=== PATIENT | male | born 1950 | race Caucasian/White ===

== ENCOUNTER 2019-02-25 02:33 | Emergency (ER) | payer MEDICARE, MEDICAID ==
--- NOTE | 2019-02-25 03:09 | EDM.PDOC ---
ED HPI GENERAL MEDICAL PROBLEM - General Chief Complaint: General Stated Complaint: FLU LIKE SYMPTOMS Time Seen by Provider: 02/25/19 03:05 Source of Information: Reports: Patient History Limitations: Reports: No Limitations - History of Present Illness INITIAL COMMENTS - FREE TEXT/NARRATIVE: 69-year-old male who noted nasal congestion yesterday and subjective fever. He also had a mild cough and bilateral eye burning. He has since developed right ear pain. The nasal congestion has been with clear nasal discharge. He has had no nausea or vomiting. He does have a mild sore throat. No difficulty breathing. He has been able to eat and drink normally. No body aches. He does rate the burning in his eyes as an 8/10. He has been applying eyedrops with some relief. There are no other associated signs or symptoms. There are no other modifying factors. 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 (Yesterday, but they have no more) Bilateral eye & throat Pain Score (Numeric/FACES): 8 - Related Data Allergies Allergy/AdvReac Type Severity Reaction Status Date / Time No Known Allergies Allergy Verified 02/25/19 02:44 Home Meds: Home Meds Acetaminophen [Tylenol Extra Strength] 500 - 1,000 mg PO Q6H PRN #24 tablet [Rx] Ibuprofen [Ibu] 800 mg PO Q8H PRN #30 tablet 02/25/19 [Rx] Past Medical History - Past Health History Medical/Surgical History: Denies Medical/Surgical History Musculoskeletal History: Reports: Fracture Other Musculoskeletal History: R leg fx - Past Surgical History Musculoskeletal Surgical History: Reports: ORIF Other Musculoskeletal Surgeries/Procedures:: R foot surgery Social & Family History - Tobacco Use Smoking Status *Q: Former Smoker Years of Tobacco use: 1 Used Tobacco, but Quit: Yes Month/Year Tobacco Last Used: may - Caffeine Use Caffeine Use: Reports: Coffee, Soda, Tea - Alcohol Use Alcohol Use History: No - Recreational Drug Use Recreational Drug Use: No - Living Situation & Occupation Living situation: Reports: with Significant Other Occupation: Employed (Works as a salas) ED ROS GENERAL - Review of Systems Review Of Systems: See Below Constitutional: Reports: Fever, Malaise HEENT: Reports: Ear Pain (Right ear pain), Eye Pain (Bilateral eye burning), Other (Nasal congestion) Respiratory: Reports: Cough. Denies: Shortness of Breath, Wheezing Cardiovascular: Reports: No Symptoms GI/Abdominal: Reports: No Symptoms : Reports: No Symptoms Musculoskeletal: Reports: No Symptoms Skin: Reports: No Symptoms Neurological: Reports: No Symptoms Hematologic/Lymphatic: Reports: No Symptoms Immunologic: Reports: No Symptoms ED EXAM, GENERAL - Physical Exam Exam: See Below Exam Limited By: No Limitations General Appearance: Alert, WD/WN, No Apparent Distress Eye Exam: Bilateral Eye: EOMI, Normal Inspection (No conjunctival injection. Sclerae are anicteric), PERRL Ears: Normal External Exam, Normal Canal, Hearing Grossly Normal, Normal TMs Ear Exam: Bilateral Ear: Auricle Normal, Canal Normal, TM normal Nose: No Blood, Nasal Drainage, Clear Rhinorrhea Throat/Mouth: Normal Voice, No Airway Compromise, Other (Mild erythema posteriorly) Head: Atraumatic, Normocephalic Neck: Normal Inspection, Supple, Non-Tender, Full Range of Motion Respiratory/Chest: No Respiratory Distress, Lungs Clear, Normal Breath Sounds, No Accessory Muscle Use, Chest Non-Tender Cardiovascular: Normal Peripheral Pulses, Regular Rate, Rhythm, No JVD Peripheral Pulses: 2+: Radial (L), Radial (R) GI/Abdominal: Normal Bowel Sounds, Soft, Non-Tender, No Mass Back Exam: Normal Inspection Extremities: Normal Inspection, Normal Range of Motion, Non-Tender, No Pedal Edema, Normal Capillary Refill Neurological: Alert, Oriented, CN II-XII Intact, Normal Cognition, No Motor/ Sensory Deficits Skin Exam: Warm, Dry, Intact, Normal Color, No Rash Lymphatic: No Adenopathy Course - Vital Signs Last Recorded V/S: Last Vital Signs Temp 36.4 C 02/25/19 02:37 Pulse 59 L 02/25/19 02:37 Resp 18 02/25/19 02:37 BP 108/77 02/25/19 02:37 Pulse Ox 100 02/25/19 02:37 - Orders/Labs/Meds Orders: Active Orders 24 hr Category Date Time Status STREP SCRN A RAPID W CULT CONF [RM] Stat Lab 02/25/19 03:25 Received Labs: Rapid strep screen was negative. Throat swab was sent for confirmatory culture. Meds: Medications Discontinued Medications Generic Name Dose Route Start Last Admin Trade Name Osminq PRN Reason Stop Dose Admin Acetaminophen 1,000 mg 02/25/19 03:27 02/25/19 03:53 Tylenol Extra Strength PO 02/25/19 03:28 1,000 mg ONETIME ONE Administration - Re-Assessments/Exams Free Text/Narrative Re-Assessment/Exam: 02/25/19 03:55: Rapid strep screen was negative. His symptoms are consistent with a viral upper respiratory infection. I have recommended symptomatic treatment and I have given a prescription for Tylenol and ibuprofen. He may continue using the eyedrops as needed for comfort. Precautions and reasons for return to the emergency department were discussed with the patient and his significant other. Departure - Departure Time of Disposition: 03:57 Disposition: Home, Self-Care 01 Condition: Good Clinical Impression: URI (upper respiratory infection) Qualifiers: URI type: unspecified URI Qualified Code(s): J06.9 - Acute upper respiratory infection, unspecified - Discharge Information Prescriptions: Acetaminophen [Tylenol Extra Strength] 500 - 1,000 mg PO Q6H PRN #24 tablet PRN Reason: Pain or fever Ibuprofen [Ibu] 800 mg PO Q8H PRN #30 tablet PRN Reason: Pain or fever Instructions: Upper Respiratory Infection, Adult, [id number] Referrals: Charles Cheng MD [Primary Care Provider] - Forms: ED Department Discharge Additional Instructions: Your strep screen was negative. Your symptoms are consistent with a viral upper respiratory infection. Increase your fluid intake. You may continue to use the [id number] eyedrops as needed for symptom control. Medication as prescribed (Tylenol, ibuprofen). Follow-up with your primary doctor as needed. Back to the emergency department for devoutly breathing, unrelenting vomiting or any other concerning sign or symptom. - My Orders Last 24 Hours: My Active Orders 02/25/19 03:25 STREP SCRN A RAPID W CULT CONF [RM] Stat - Assessment/Plan Last 24 Hours: My Active Orders 02/25/19 03:25 STREP SCRN A RAPID W CULT CONF [RM] Stat
[2019-02-25] MEDS ORDERED: Acetaminophen 500 MG Tab PO ONE (03:27)
[2019-02-25 04:01] VITALS: BP 126/75; PULSE 56
== END 2019-02-25 04:04 | disposition home or self-care (01) ==
LOC: FB.ED 02:33
DX: J06.9 Acute upper respiratory infection, unspecified (principal); Z79.891 Long term (current) use of opiate analgesic
CPT/HCPCS: 87081; 87880-QW; 99282; 99283; A9270-GY

== ENCOUNTER 2021-10-09 20:41 | Emergency (ER) | payer MEDICARE, MEDICAID ==
[2021-10-09] MEDS ORDERED: methylPREDNISolone Sodium Succinate 125 MG/2 ML SDV IM ONE (21:03)
[2021-10-09] MEDS ORDERED: Albuterol/Ipratropium 3.0-0.5 MG/3 ML Neb Soln NEB ONE (21:03)
[2021-10-09] MEDS ORDERED: Azithromycin 500 MG Tab PO STA (21:04)
[2021-10-09 23:35] VITALS: BP 138/78; PULSE 78
== END 2021-10-09 22:00 | disposition home or self-care (01) ==
LOC: FB.ED 20:41
DX: R09.1 Pleurisy (principal); J40 Bronchitis, not specified as acute or chronic; Z79.899 Other long term (current) drug therapy
CPT/HCPCS: 71045; 94640; 96372; 99284; A9270; J2930; 99282; J7620

== ENCOUNTER 2024-11-27 11:49 | Emergency (ER) | payer MEDICAID, MEDICARE ==
[2024-11-27 12:01] VITALS: BP 131/72; PULSE 89
[2024-11-27] MEDS: Alum Hydroxide/Mag Hydroxide 30 ML, Lidocaine 2% 30 ML PO ONE (12:13)
== END 2024-11-27 12:39 | disposition home or self-care (01) ==
LOC: FB.ED 11:49
DX: K21.9 Gastro-esophageal reflux disease without esophagitis (principal); Z79.899 Other long term (current) drug therapy
CPT/HCPCS: 99283; A9270-GY